=== PATIENT | female | born 1950 ===

== ENCOUNTER 2019-01-24 14:54 | Emergency (ER) | payer OTHER ==
[~2019-01-24] VITALS: Ht 160 cm; Wt 50.8 kg
[~2019-01-24 14:54] MED LIST: CARAFATE SU1 G/10 ML PO; NEXIUM5 MG PO; SYNTHROID50 MCG PO; VASOTEC5 MG PO; XANAX XR0.5 MG PO; ZANTAC300 MG PO
== END 2019-01-25 16:44 | disposition home or self-care (01) ==
LOC: ER 14:54 → EDBD 15:20 → ER 01-25 16:44
DX: K57.30 Diverticulosis of large intestine without perforation or abscess without bleeding (principal)

== ENCOUNTER 2019-01-30 12:36 | Outpatient (CLI) | payer OTHER | END 2019-01-30 14:52 | disposition home or self-care (01) | LOC: MRI 12:36 | DX: K76.89 Other specified diseases of liver (principal) | CPT/HCPCS: 74182 ==